=== PATIENT | female | born 1935 | race Two or more races ===

== ENCOUNTER → 2017-10-17 | Outpatient (CLI) | payer OTHER | LOC: CIMAGING 13:07 | PROVIDERS: ATTEND Family Medicine | DX: M25.711 Osteophyte, right shoulder (principal); F51.04 Psychophysiologic insomnia; I10 Essential (primary) hypertension; M85.80 Other specified disorders of bone density and structure, unspecified site | CPT/HCPCS: 73030-PO ==

== ENCOUNTER → 2017-12-22 | Outpatient (CLI) | payer OTHER | LOC: CIMAGING 11:16 | PROVIDERS: ATTEND Family Medicine | DX: J98.4 Other disorders of lung (principal); M19.011 Primary osteoarthritis, right shoulder; M85.611 Other cyst of bone, right shoulder | CPT/HCPCS: 71046-PO; 73000-PO; 73030-PO ==

== ENCOUNTER → 2018-01-23 | Outpatient (CLI) | payer OTHER | LOC: FIMAGING 12:11 | PROVIDERS: ATTEND Family Medicine | DX: M67.411 Ganglion, right shoulder (principal); M75.101 Unspecified rotator cuff tear or rupture of right shoulder, not specified as traumatic; M66.821 Spontaneous rupture of other tendons, right upper arm; M19.011 Primary osteoarthritis, right shoulder ==